=== PATIENT | male | born 1950 | race Caucasian/White ===

== ENCOUNTER → 2024-02-09 14:51 | Outpatient (REF) | payer MEDICARE, SELFPAY | LOC: HWRCS 14:51 | PROVIDERS: ATTENDING PHYSICIAN Internal Medicine Cardiovascular Disease | DX: I77.810 Thoracic aortic ectasia (principal) | CPT/HCPCS: 93306 ==

== ENCOUNTER → 2024-07-11 10:15 | Outpatient (REF) | payer OTHER, SELFPAY | LOC: HWRAD 10:15 | PROVIDERS: ATTENDING PHYSICIAN Physician Assistant Medical; REFERRING PHYSICIAN Internal Medicine Critical Care Medicine | DX: R05.3 Chronic cough (principal) | CPT/HCPCS: 71046 ==

== ENCOUNTER 2024-07-21 15:53 | Emergency (ER) | payer OTHER, SELFPAY ==
[2024-07-21 16:18] VITALS: BP 130/79
[2024-07-21 16:44] LABS: Hematocrit 41.3 % (39.0-52.0); Hemoglobin 13.9 g/dL (13.0-18.0); Mean Corp Hgb Conc. 33.7 g/dL (33.0-37.0); Mean Corpuscular Hgb 31.5 pg (27.0-31.0); Mean Corpuscular Volume 93.7 fL (80.0-94.0); Mean Platelet Volume 9.8 fL (7.4-10.4); Platelet Count 206 10^3/uL (130-400); Red Blood Cell Count 4.41 10^6/uL (4.70-6.10); Red Cell Dist. Width 13.9 % (11.5-14.5); White Blood Cell Count 6.7 10^3/uL (4.8-10.8)
[2024-07-21 16:59] LABS: ALT (SGPT) 34 U/L (0-50); AST (SGOT) 40 U/L (17-59); Albumin 4.1 g/dl (3.5-5.0); Alkaline Phosphatase 164 U/L (38-126); Blood Urea Nitrogen 13 mg/dl (9-20); Calcium 9.8 mg/dl (8.4-10.2); Carbon Dioxide 29 mmol/L (22-30); Chloride 108 mmol/L (98-107); Glucose 162 mg/dl (70-99); Potassium 5.5 mmol/L (3.5-5.1); Sodium 143 mmol/L (135-145); Total Bilirubin 0.4 mg/dl (0.2-1.3); Total Protein 6.7 g/dl (6.3-8.2); eGFR > 60.00
--- NOTE | 2024-07-21 18:38 | ED.GENMED ---
History of Present Illness
General
Chief Complaint: Cold/Flu/URI Symptoms
Time Seen by Provider: 07/21/24 18:23
History of Present Illness
History of Present Illness:
74-year-old male presents the emergency department for evaluation of productive cough and wheezing ongoing for the past several weeks. Initially had a dry cough starting in April that seem to transition to a productive cough more recently. Also
reports fatigue associated with the symptoms. No fevers or chills.
Past History
Past History
ED Past Medical History: Hypercholesterolemia and Other (Kidney stones)
ED Past Surgical History: Appendectomy and Other (Lithotripsy)
Social History
Tobacco: Non-smoker
Alcohol: None
Personal:
Living: with family
Employment: Employed
Review of Systems
Review of Systems
Allergies reviewed?: Yes
All Other Systems: ROS reviewed and negative except as documented in HPI and ROS
Phy Exam
Physical Exam
Physical Exam:
GEN: Well appearing, NAD, WDWN
HEENT: Oral mucosa moist, no scleral icterus
Cardiac: Regular rate and rhythm, no murmur
Lung: No respiratory distress, no tachypnea, lower field rhonchi predominantly in the right lower field with expiratory wheezing heard throughout
MSK: No gross deformity or injuries
Skin: Good color, no pallor or jaundice, no rashes
Neuro: AO x3, moves all extremities freely
Psych: Calm, cooperative
Course
Orders/Labs/Results
Orders:
Orders
07/21/24 16:26
CXR2 [CR Chest - 2 Views ] Urgent
Comment:
Reason For Exam: cough
07/21/24 16:34
CMP [Comprehensive Metabolic Panel] Urgent
Complete Blood Count/No Diff Urgent
Influenza A+B Rapid Molecular Urgent
SELVIN Source: Nasal Swab
Specimen Description:
Abnormal Lab Results
07/21/24
16:34
RBC 4.41 L 10^6/uL
(4.70-6.10)
MCH 31.5 H pg
(27.0-31.0)
Potassium 5.5 H mmol/L
(3.5-5.1)
Chloride 108 H mmol/L
(98-107)
Glucose 162 H mg/dl
(70-99)
Alkaline Phosphatase 164 H U/L
(38-126)
07/21/24 16:34
07/21/24 16:34
Vital Signs
Initial and Last Documented VS:
Initial Vital Signs
Temp Pulse Resp BP Pulse Ox
98.3 F 77 18 130/79 94
07/21/24 16:18 07/21/24 16:18 07/21/24 16:18 07/21/24 16:18 07/21/24 16:18
Last Documented Vital Signs
Temp Pulse Resp BP Pulse Ox
98.3 F 77 18 130/79 94
07/21/24 16:18 07/21/24 16:18 07/21/24 16:18 07/21/24 16:18 07/21/24 16:18
MDM/Problems Addressed
MDM/Problems Addressed:
Given duration of symptoms and newly productive cough this may be a bacterial bronchitis, will treat with steroids and azithromycin, chest x-ray shows no evidence of pneumonia
*Critical Care Note
Total Time (30-74mins, 75-104mins- exclusive of procedures): Not Applicable
ED Attending Note
-
Portions of this chart may have been created with voice recognition software.� Occasional wrong word or��sound alike� substitutions may have occurred due to the inherent limitations of voice recognition software.
Discharge Plan
Departure
Patient Disposition: Home (Routine Discharge)
Date of Disposition: 07/21/24
Time of Disposition: 18:38
Patient with high blood pressure during this ER visit?: No
Discharge Problem:
Bronchitis
Instructions: Acute Bronchitis, Adult (DC)
Prescriptions:
New
azithromycin [Zithromax] 250 mg tablet
250 mg PO DAILY Qty: 6 0RF
Rx Instructions:
500mg PO on day 1 then 250mg PO qd x 4 days
methylprednisolone [Medrol (Andrea)] 4 mg tablets,dose pack
See Rx Instructions .ROUTE .COMPLEX Qty: 21 0RF
Rx Instructions:
orally per package directions
No Action
simvastatin 20 MG tablet
20 mg PO QPM
ibuprofen 200 MG tablet
200 mg PO PRN (Reason: pain)
calcium carbonate-vitamin D3 [Calcium 600 + D(3)] 1 EACH capsule
1 ea PO DAILY
ailzo-2a-sjb-epa-fish oil 1 EACH capsule
2 ea PO DAILY
multivitamin with folic acid [Tab-A-Padma] 1 TABLET tablet
1 tab PO DAILY
Levothyroxine
75 mcg PO DAILY
hydrocodone-acetaminophen 5 MG/500 MG tablet
1 tab PO Q4HPRN PRN (Reason: PAIN) Qty: 20 0RF
tamsulosin 0.4 MG capsule
0.4 mg PO DAILY Qty: 7 0RF
oxycodone-acetaminophen 5 MG/325 MG tablet
1 tab PO Q4HPRN PRN (Reason: pain) Qty: 12 0RF
prednisone 20 mg tablet
40 mg PO DAILY Qty: 10 0RF
doxycycline hyclate 100 mg capsule
100 mg PO BID 14 Days Qty: 28 0RF
Referrals:
Thuan Nixon PA-C [Family Provider] -
Interventions
Interventions:
*Risk Screen - Suicide Last Done: 07/21/24 16:18
*Neglect/Abuse Screening Last Done: 07/21/24 16:18
*ED COVID-19 Vaccine History Last Done: 07/21/24 16:18
Discharge Date and Time
Print Language: GREENLANDIC
== END 2024-07-21 18:56 | disposition home or self-care (01) ==
LOC: EMR 15:53
PROVIDERS: Emergency Medicine; EMERGENCY PHYSICIAN Emergency Medicine; FAMILY PHYSICIAN Physician Assistant Medical
DX: J40 Bronchitis, not specified as acute or chronic (principal); E78.00 Pure hypercholesterolemia, unspecified
CPT/HCPCS: 99284; 71046; 80053; 85027; 87502